=== PATIENT | female | born 1955 | race Caucasian/White ===

== ENCOUNTER 2017-08-08 14:30 | Inpatient (IN) | payer BC ==
[~2017-08-08] VITALS: Ht 170.2 cm; Wt 68.1 kg
[2017-08-08 15:06] LABS: APPEARANCE CLEAR ((CLEAR)); BILIRUBIN NEGATIVE; BLOOD NEGATIVE; COLOR YELLOW ((YELLOW)); GLUCOSE (STRIP) NEGATIVE; KETONES NEGATIVE; LEUKOCYTES NEGATIVE; NITRITE NEGATIVE; PROTEIN (STRIP) NEGATIVE; SPECIFIC GRAVITY 1.004 (1.000-1.030); UCUL ADDED? NO; UROBILINOGEN 0.2 MG/DL (0.2-1.0)
[2017-08-08 15:37] LABS: BASOPHIL (%) 0.6 % (0-1); BASOPHIL COUNT 0.1 K/uL (0-0.1); EOSINOPHIL (%) 1.8 % (0-5); EOSINOPHIL COUNT 0.1 K/uL (0-0.3); HEMATOCRIT 40.4 % (36.0-46.0); HEMOGLOBIN 13.9 G/DL (11.9-15.5); IMMATURE GRANULOCYTE (%) 0.3 % (0.0-0.7); LYMPHOCYTE (%) 29.2 % (15-42); LYMPHOCYTE COUNT 2.3 K/uL (1.0-2.8); MCH 30.8 PG (29.0-34.0); MCHC 34.4 G/DL (30.0-36.0); MCV 89.4 FL (83-99); MONOCYTE (%) 9.5 % (3-12); MONOCYTE COUNT 0.7 K/uL (0-0.8); NEUTROPHIL (%) 58.6 % (45-76); NEUTROPHIL COUNT 4.6 K/uL (1.8-6.4); PLATELET COUNT 347 K/uL (156-360); RBC DIS.WIDTH-CV 13.3 % (11.8-14.6); RED BLOOD COUNT 4.52 M/uL (3.80-5.20); WHITE BLOOD COUNT 7.8 K/uL (4.1-10.2)
[2017-08-08 15:48] LABS: ALBUMIN 4.6 g/dL (3.2-4.8); CHLORIDE 107 mEq/L (99-109); POTASSIUM 3.3 mEq/L (3.7-5.4); SODIUM 141 mEq/L (136-147)
[2017-08-08 15:50] LABS: GLUCOSE 80 mg/dL (70-99); TOTAL PROTEIN 8.1 g/dL (6.4-8.3)
[2017-08-08 15:52] LABS: TOTAL BILIRUBIN 0.7 mg/dL (0.0-1.0)
[2017-08-08 15:54] LABS: ALKALINE PHOSPHATASE 65 IU/L (3-129); CREATININE 0.8 mg/dL (0.6-1.3); GFR ESTIMATE (CALCULATED) > 59 mL/min/
[2017-08-08 15:55] LABS: UREA NITROGEN (BUN) 13 mg/dL (9-23)
[2017-08-08 15:56] LABS: AST (GOT) 17 IU/L (2-34)
[2017-08-08 15:57] LABS: ALT (GPT) 17 IU/L (3-49); LIPASE 730 U/L (1.0-51.0)
[2017-08-08 18:18] VITALS: BP 165/80
[2017-08-08] MEDS ORDERED: EFFEXOR XR150 MG PO (18:19)
[2017-08-08] MEDS ORDERED: IRON18 MG PO (18:21)
[2017-08-08] MEDS ORDERED: ONE-A-DAY ESSE1 EAC1 PO (18:23)
[2017-08-08] MEDS ORDERED: SIMVASTATIN20 MG PO (18:23)
[2017-08-08] MEDS ORDERED: NORVASC10 MG PO (18:24)
[2017-08-08] MEDS ORDERED: ADULT ASPIRIN81 MG PO (18:24)
[2017-08-08] MEDS ORDERED: TOPIRAMATE25 MG PO (18:25)
[2017-08-08] MEDS ORDERED: ALLER-TEC10 MG PO (18:25)
[2017-08-08] MEDS ORDERED: CALCIUM 500 +1 EACH PO ×2 (18:27)
[2017-08-09 00:35] VITALS: BP 117/61
[2017-08-09 06:52] LABS: CHLORIDE 114 MEQ/L (99-109); CREATININE 0.5 MG/DL (0.6-1.3); GFR ESTIMATE (CALCULATED) > 59 mL/min/; GLUCOSE 89 mg/dL (70-99); LIPASE 365 U/L (1.0-51.0); SODIUM 143 MEQ/L (136-147); TRIGLYCERIDES 62 MG/DL (Normal: <150); UREA NITROGEN (BUN) 9 mg/dL (9-23)
[2017-08-09 06:58] LABS: POTASSIUM 4.2 MEQ/L (3.7-5.4)
[2017-08-09 07:25] VITALS: BP 112/64
[2017-08-09 13:28] LABS: C DIFF TOXIN NEGATIVE (NEGATIVE)
[2017-08-09 16:50] VITALS: BP 118/72
[2017-08-09 23:16] VITALS: BP 144/80
[2017-08-10 07:10] VITALS: BP 121/69
[2017-08-10] MEDS ORDERED: BENTYL10 MG PO (11:17)
== END 2017-08-10 13:00 | disposition home or self-care (01) | DRG 440 ==
LOC: EME 14:30 → EDOF 16:49 → 5EAST 16:49 → ENRESERV 16:52 → 5EAST 18:12 → ENPENDDIS 08-10 → 5EAST 08-10 13:00
PROVIDERS: Emergency Medicine; Internal Medicine; Physician Assistant
DX: K85.90 Acute pancreatitis without necrosis or infection, unspecified (principal); E87.6 Hypokalemia; R19.7 Diarrhea, unspecified; I10 Essential (primary) hypertension; E78.5 Hyperlipidemia, unspecified; M81.0 Age-related osteoporosis without current pathological fracture; G89.29 Other chronic pain; M54.9 Dorsalgia, unspecified; F32.9 Major depressive disorder, single episode, unspecified; F41.9 Anxiety disorder, unspecified
CPT/HCPCS: 74176; 76705; 80048; 80053; 81003; 82787 90; 83690; 84478; 85025; 87493; 93005; 99281; 99285; J1650; J3480; J7030